=== PATIENT | male | born 1945 | race Two or more races ===

== ENCOUNTER 2021-05-07 13:07 | Emergency (ER) | payer SELFPAY ==
[~2021-05-07] VITALS: Ht 175.3 cm; Wt 69.2 kg
--- NOTE | 2021-05-07 13:52 | NUR ---
tele marketing executive: Pt ambulatory to room from lobby at this time.
[2021-05-07] MEDS ORDERED: IPRATROPIUM 0.5 MG/2.5 ML INHA ONE (14:11)
[2021-05-07] MEDS ORDERED: ALBUTEROL SULFATE 2.5 MG/3 ML ONE (14:11)
[2021-05-07] MEDS ORDERED: IPRATROPIUM 0.5 MG/2.5 ML INHA NPPB ONE (14:30)
[2021-05-07] MEDS ORDERED: ALBUTEROL SULFATE 2.5 MG/3 ML NPPB SCH (14:30)
[2021-05-07] MEDS ORDERED: ALBUTEROL/IPRATROPIUM 2.5MG/0.5MG, 3 ML ONE (15:58)
[2021-05-07] MEDS ORDERED: ALBUTEROL/IPRATROPIUM 2.5MG/0.5MG, 3 ML NPPB ONE (16:00)
--- NOTE | 2021-05-07 16:00 | NUR ---
Report from break RN that pt did not want duoneb, want's to be d/c'd. This RN to bedside to evaluate. Pt states he will take duoneb and then be d/c'd.
[2021-05-07 16:39] VITALS: BP 157/88
--- NOTE | 2021-05-07 16:44 | NUR ---
Pt noted to be sweaty. Pt denies any chest pain. No changes seen on cardiac nurse practitioner. Pt states "all the time at home, I'm very active. I'm always this sweaty." Interpretur at bedside used to confirm that pt felt better, and felt confident being d/c'd home.
== END 2021-05-07 16:49 | disposition other institution (70) ==
LOC: ED 15:03
DX: J45.41 Moderate persistent asthma with (acute) exacerbation (principal); J45.42 Moderate persistent asthma with status asthmaticus; R00.0 Tachycardia, unspecified; R06.02 Shortness of breath
CPT/HCPCS: 71045; 93005; 94640; 99285; J7512; J7613; J7644

== ENCOUNTER 2021-07-27 20:34 | Emergency (ER) | payer MEDICARE, MEDICAID ==
[~2021-07-27] VITALS: Ht 175.3 cm; Wt 70.6 kg
[2021-07-27 20:53] VITALS: BP 129/81
--- NOTE | 2021-07-27 21:58 | NUR ---
called in the lobby, no answer.
--- NOTE | 2021-07-27 22:15 | NUR ---
called in the lobby, no answer
--- NOTE | 2021-07-27 22:26 | NUR ---
called in the lobby, no answer
== END 2021-07-27 22:29 | disposition left against medical advice (07) ==
LOC: ED 20:39
DX: M79.645 Pain in left finger(s) (principal); Z53.21 Procedure and treatment not carried out due to patient leaving prior to being seen by health care provider